=== PATIENT | female | born 1950 | race Two or more races ===

== ENCOUNTER 2018-06-28 10:55 | Inpatient (IN) | payer OTHER ==
[~2018-06-28] VITALS: Ht 149.9 cm; Wt 73.0 kg
[2018-08-19] MEDS ORDERED: IBRERSARTAN PO (10:36)
[2018-08-19] MEDS ORDERED: AMILODIPINE PO (10:37)
[2018-08-19] MEDS ORDERED: METROPOLOL PO (10:38)
[2018-08-19] MEDS ORDERED: ZOCOR20 MG PO (10:38)
[2018-08-19] MEDS ORDERED: SYNTH PO (10:38)
[2018-08-19] MEDS ORDERED: ATIVAN1 M1 PO (10:39)
[2018-08-24] MEDS ORDERED: IRBESARTAN75 MG PO (18:10)
[2018-08-24] MEDS ORDERED: AMLODIPINE BESYL5 MG PO (18:11)
[2018-08-24] MEDS ORDERED: METOPROLOL SUC100 MG PO (18:11)
[2018-08-24] MEDS ORDERED: SYNTHROID50 MCG PO (18:12)
== END 2018-08-27 16:39 | disposition home or self-care (01) | DRG 331 ==
LOC: O/R 08-24 05:41 → SURG 08-24 05:41 → SURH 08-24 07:00 → SURG 08-24 14:59
PROVIDERS: Colon & Rectal Surgery
PROC: 0DJD8ZZ Inspection of Lower Intestinal Tract, Via Natural or Artificial Opening Endoscopic (ICD-10-PCS; 2018-08-24)
PROC: 0DTN4ZZ Resection of Sigmoid Colon, Percutaneous Endoscopic Approach (ICD-10-PCS; principal; 2018-08-24 07:00)
DX: K57.32 Diverticulitis of large intestine without perforation or abscess without bleeding (principal); I10 Essential (primary) hypertension; E03.8 Other specified hypothyroidism; E78.49 Other hyperlipidemia

== ENCOUNTER 2019-10-14 08:51 | Day surgery (SDC) | payer OTHER ==
[~2019-10-14 08:51] MED LIST: AMILODIPINE PO; AMLODIPINE BESYL5 MG PO; ATIVAN1 M1 PO; IBRERSARTAN PO; IRBESARTAN75 MG PO; METOPROLOL SUC100 MG PO; METROPOLOL PO; SYNTH PO; SYNTHROID50 MCG PO; ZOCOR20 MG PO
== END 2019-10-14 17:20 | disposition home or self-care (01) ==
LOC: AMB-ENDOS 08:51
DX: K57.32 Diverticulitis of large intestine without perforation or abscess without bleeding (principal); K57.30 Diverticulosis of large intestine without perforation or abscess without bleeding; K64.1 Second degree hemorrhoids